=== PATIENT | male | born 1975 | race Caucasian/White ===

== ENCOUNTER 2017-03-23 16:14 | Emergency (ER) | payer OTHER, SELFPAY ==
--- NOTE | 2017-03-23 16:38 | Emergency Department Record ---
History of Present Illness - General Chief Complaint: Shortness of breath Stated Complaint: ANABELLE Time Seen by Provider: 03/23/17 16:31 Source: Patient, Family Mode of Arrival: Ambulatory Limitations: No limitations - History of Present Illness Initial Comments: 41 yo male presents with two weeks of cough and congestion. The last three days his cough has had some feeling of being productive but he swallows the sputum. The last three days it hurts to cough or take deep breaths. He states he is not short of breath but it is uncomfortable with breathing. No fevers or chills. No nausea or vomiting. No rash. He is not a smoker. No current PCP. He is not on any medications currently. He does have seasonal allergies that have been worse recently. He has had pneumonia in the past with similar symptoms. No calf pain. The pain is worse laying or on his side. No PCP MD Complaint: Chest pain, Cough, Pain with inspiration, Shortness of breath Onset/Timin -: Week(s) Severity: Moderate Severity scale (1-10): 7 Quality: Aching, Burning (with deep inspiration) Consistency: Constant Improves With: Nothing Worsens With: Nothing Associated Symptoms: Cough, Pain with inspiration Treatments Prior to Arrival: Bronchodilator - Related Data Previous Rx's Medication Instructions Recorded Azithromycin [Zithromax] 250 mg PO DAILY #4 tablet 03/23/17 Prednisone [Prednisone 20Mg] 20 mg PO DAILY #10 tab 03/23/17 Allergies Allergy/AdvReac Type Severity Reaction Status Date / Time Sulfa (Sulfonamide Allergy Unknown HIVES Verified 03/23/17 16:23 Antibiotics) Travel Screening - Travel/Exposure Within Last 30 Days Have you traveled within the last 30 days?: No Review of Systems Constitutional: Denies: Chills, Fever, Weakness Eyes: Denies: Eye discharge, Eye pain, Photophobia, Vision change ENT: Reports: Congestion. Denies: Dental pain, Epistaxis, Hearing loss, Throat pain Respiratory: Reports: Cough. Denies: Dyspnea, Hemoptysis, Stridor, Wheezes Cardiovascular: Reports: Chest pain (with deep inspiration). Denies: Dyspnea on exertion, Edema, Palpitations, Syncope Endocrine: Denies: Fatigue, Polydipsia, Polyuria Gastrointestinal: Denies: Abdominal pain, Diarrhea, Nausea, Vomiting Genitourinary: Denies: Dysuria, Frequency, Hematuria, Urgency Musculoskeletal: Denies: Arthralgia, Back pain, Joint swelling, Myalgia, Neck pain Skin: Denies: Bruising, Change in color, Rash Neurological: Denies: Headache, Numbness, Tremors, Vertigo, Weakness Psychiatric: Denies: Anxiety Hematological/Lymphatic: Denies: Blood Clots, Easy bleeding, Easy bruising, Swollen glands Past Medical History - SOCIAL HISTORY Smoking Status: Never smoker Alcohol Use: None Drug Use: None - RESPIRATORY Hx Respiratory Disorders: Yes Hx Pneumonia: Yes - CARDIOVASCULAR Hx Cardio Disorders: Yes Hx Hypertension: Yes - NEURO Hx Neuro Disorders: No - GI Hx GI Disorders: No - Hx Genitourinary Disorders: No - ENDOCRINE Hx Endocrine Disorders: No - MUSCULOSKELETAL Hx Musculoskeletal Disorders: No - PSYCH Hx Psych Problems: No - HEMATOLOGY/ONCOLOGY Hx Hematology/Oncology Disorders: No Family Medical History Any Significant Family History?: No Physical Exam - General General Appearance: Alert, Oriented x3, Cooperative, No acute distress Limitations: No limitations - Head Head exam: Normal inspection - Eye Eye exam: Normal appearance. negative: Conjunctival injection, Periorbital swelling - ENT ENT exam: Normal exam. negative: Mucous membranes moist Ear exam: negative: Normal external inspection Nasal Exam: negative: Normal inspection Mouth exam: negative: Normal external inspection Teeth exam: negative: Normal inspection Throat exam: negative: Normal inspection - Neck Neck exam: Normal inspection, Full ROM. negative: Lymphadenopathy, Tenderness - Respiratory Respiratory exam: Normal lung sounds bilaterally, Other (Calm respirations, non labored breathing). negative: Accessory muscle use, Decreased breath sounds, Respiratory distress, Rhonchi, Stridor, Wheezes - Cardiovascular Cardiovascular Exam: Regular rate, Normal rhythm, Normal heart sounds - GI/Abdominal GI/Abdominal exam: Soft. negative: Tenderness - Rectal Rectal exam: Deferred - exam: Deferred - Extremities Extremities exam: Normal inspection, Full ROM, Normal capillary refill. negative: Tenderness - Back Back exam: Reports: Normal inspection, Full ROM. Denies: Muscle spasm, Rash noted, Tenderness - Neurological Neurological exam: Alert, Normal gait, Oriented X3 - Psychiatric Psychiatric exam: Normal affect, Normal mood. negative: Agitated, Anxious - Skin Skin exam: Dry, Intact, Normal color, Warm Course Vital Signs 03/23/17 16:15 Temperature 98.3 F Pulse Rate 91 H Respiratory 20 Rate Blood Pressure 153/107 Pulse Ox 97 - Reevaluation(s) Reevaluation #1: 03/23/17 16:38 Vitals reviewed. No tachycardia. No fever. No hypoxia. Reevaluation #2: The Troponin is negative and CRP is normal. Atypical symptoms are unlikely for pericarditis, myocarditis, ACS. Normal labs after 3 days of pain with cough. The CXR was read as negative for acute process. I discussed the results with the patient and spouse. With the cough for 2 weeks I recommend Claritin, Prednisone, and Zithromax given 2 weeks of cough. We discuss a recheck in the ED if any concerns, not improving or any new symptoms 03/23/17 17:39 Procedures - EKG Initial Date: 03/23/17 Time: 16:53 EKG: No Acute Changes EKG Detail: NSR rate 96, intervals normal, axis normal, ST no acute changes Medical Decision Making - Lab Data Result diagrams: 03/23/17 16:35 03/23/17 16:35 Disposition Disposition: Discharge Clinical Impression: Cough, Bronchitis Disposition: Home, Self-Care Condition: (1) Good Instructions: Acute Bronchitis (ED), Allergies (ED) Additional Instructions: Return immediately if worse, fever, short of breath, pain or concerns Call the [facility] for a new physician referral Prescriptions: Azithromycin [Zithromax] 250 mg PO DAILY #4 tablet Prednisone [Prednisone 20Mg] 20 mg PO DAILY #10 tab Referrals: KEITH JONES M.D. [MEDICAL DOCTOR] - Forms: Patient Portal Access Time of Disposition: 17:52
[2017-03-23] MEDS ORDERED: METHYLPREDNISOLONE PF 125MG/VIAL IVP ONE (16:43)
[2017-03-23] MEDS ORDERED: METHYLPREDNISOLONE PF 125MG/VIAL IVP SCH (16:45)
[2017-03-23 16:50] LABS: BASO % 0.3 % (0-6); EOS % 2.7 % (0-6); GRAN % 73.9 % (47-80); HEMATOCRIT 42.7 % (42.0-52.0); HEMOGLOBIN 14.7 gm/dl (14.0-18.0); LYMPH % 18.4 % (16-45); MEAN CELL VOLUME 88.4 fl (81-97); MEAN CORPUSCULAR HEMOGLOBIN 30.4 pg (27-33); MEAN CORPUSCULAR HGB CONC 34.4 g/dl (32-36); MEAN PLATELET VOLUME 10.4 fl (7.4-10.4); MONO % 4.7 % (0-9); PLATELET COUNT 248 K/uL (130-400); RED BLOOD COUNT 4.83 M/uL (4.40-5.70); RED CELL DISTRIBUTION WIDTH 12.9 % (11.5-14.5)
[2017-03-23 17:02] LABS: ALB/GLOB RATIO 1.4 (1.1-1.8); ALBUMIN 4.4 gm/dL (3.5-5.0); ALKALINE PHOSPHATASE 47 U/L (38-126); ALT/SGPT 51 U/L (21-72); ANION GAP 5.9 (7-16); AST/SGOT 35 U/L (17-59); BILIRUBIN,TOTAL 0.41 mg/dL (0.2-1.3); BLOOD UREA NITROGEN 14 mg/dL (9-20); CARBON DIOXIDE 26.1 mmol/L (22-30); CREATININE 0.9 mg/dL (0.66-1.25); EST GLOMERULAR FILTRATION RATE > 60 ml/min; GLUCOSE,RANDOM 101 mg/dL (70-110); TOTAL PROTEIN 7.5 gm/dL (6.3-8.2)
[2017-03-23 17:33] LABS: C-REACTIVE PROTEIN < 0.5 mg/dL (0.0-0.9); TROPONIN I < 0.012 ng/mL (0.00-0.034)
[2017-03-23] MEDS ORDERED: AZITHROMYCIN 500 MG TABLET PO ONE (17:48)
== END 2017-03-23 18:02 | disposition home or self-care (01) ==
LOC: ER 16:14
DX: J20.9 Acute bronchitis, unspecified (principal); R07.9 Chest pain, unspecified; I10 Essential (primary) hypertension
CPT/HCPCS: 71020; 80053; 84484; 85025; 85379; 85651; 86140; 93005; 93010; 93041; 96374; 99284; J2930